=== PATIENT | male | born 1950 | race Caucasian/White ===

== ENCOUNTER 2018-01-05 12:49 | Inpatient (IN) | payer MEDICARE ==
[~2018-01-05] VITALS: Ht 177.8 cm; Wt 103.1 kg
[2018-01-05] MEDS ORDERED: SODIUM CHLORIDE 0.9% 500ML 500 ML IV ONE (13:45)
--- NOTE | 2018-01-05 14:38 | Diagnostic Imaging Report ---
EXAMINATION: PA and lateral views of the chest. COMPARISON: None CLINICAL HISTORY: Hypoxia DISCUSSION: Lung volumes are low. Right hemidiaphragmatic elevation. No gross consolidation or effusion. Cardiomegaly with postsurgical changes of the mediastinum and prominence of the pulmonary interstitium. Age indeterminate though likely chronic severe anterior compression deformity of a midthoracic vertebral body with near complete anterior loss of height. IMPRESSION: Low lung volumes with cardiomegaly and interstitial pulmonary edema. Age indeterminate though likely chronic severe anterior compression deformity of a midthoracic vertebral body. Correlate for point tenderness. Signed by: Dr. Toño Landaverde M.D. on 01/05/2018 2:35 PM
[2018-01-05 14:53] LABS: BASOPHILS % 0.5 % (0.0-1.0); EOSINOPHILS # (AUTO) 0.2 (0.0-0.4); EOSINOPHILS % 4.2 % (0.0-6.0); HEMATOCRIT 39.8 % (38.2-49.6); HEMOGLOBIN 12.5 g/dL (14.0-18.0); LYMPHOCYTES % 35.1 % (18.0-39.1); MEAN CORPUSCULAR HEMOGLOBIN 28.4 pg (28-32); MEAN CORPUSCULAR HGB CONC 31.4 g/dL (31-35); MEAN CORPUSCULAR VOLUME 90.5 fL (81-99); MONOCYTES # (AUTO) 0.6 (0.2-0.8); MONOCYTES % 9.9 % (4.4-11.3); NEUTROPHILS # (AUTO) 2.9 (2.1-6.9); NEUTROPHILS % 50.1 % (38.7-80.0); PLATELET COUNT 206 x10e3/uL (140-360); RED CELL DISTRIBUTION WIDTH 14.7 % (11.7-14.4)
[2018-01-05 15:23] LABS: ALANINE AMINOTRANSFERASE 18 IU/L (0-55); ALBUMIN 3.2 g/dL (3.5-5.0); ALBUMIN/GLOBULIN RATIO 1.1 (0.8-2.0); ALKALINE PHOSPHATASE 89 IU/L (40-150); BLOOD UREA NITROGEN 15 mg/dL (7-26); BUN/CREATININE RATIO 21 (6-25); CALCIUM 8.6 mg/dL (8.4-10.2); CREATININE, SERUM 0.71 mg/dL (0.72-1.25); EST GLOMERULAR FILTRATION RATE > 60 ML/MIN (60-); GLUCOSE 78 mg/dL (74-118)
[2018-01-05 15:24] LABS: THYROID STIMULATING HORMONE 3.074 uIU/mL (0.350-4.940)
[2018-01-05 15:49] LABS: ANION GAP 9.1 mmol/L (8-16); CHLORIDE 104 mmol/L (98-107); POTASSIUM 4.1 mmol/L (3.5-5.1); SODIUM 140 mmol/L (136-145)
--- NOTE | 2018-01-05 16:05 | Diagnostic Imaging Report ---
Exam: Head CT without contrast History: Fall, trauma Comparison studies: None Technique: Axial images were obtained from the skull base to the vertex. Coronal and sagittal images reconstructed from the axial data. Dose modulation, iterative reconstruction, and/or weight based adjustment of the mA/kV was utilized to reduce the radiation dose to as low as reasonably achievable. Radiation dose: Total DLP: ... mGy*cm. Estimated effective dose: DLP x 0.015 Intravenous contrast: None Findings: Scalp: No abnormalities. Bones: No fractures, blastic or lytic lesions. Brain sulci: Appropriate for age. Ventricles: The frontal horn and body of the right lateral ventricle are mildly dilated and there is mild displacement of the septum to the left of midline. Findings raise the possibility for small intraventricular arachnoid cyst. Extra-axial spaces: No masses, no fluid collection. Parenchyma: No abnormal densities. No masses, acute hemorrhage, acute or chronic vascular insults. Sellar/suprasellar region: No abnormalities. Craniocervical junction: Patent foramen magnum. No Chiari one malformation. Included paranasal sinuses: Surgical changes of previous endoscopic sinus surgery with right medial antrostomy, right uncinectomy, right medial turbinectomy, right ethmoidectomy and left sphenoidotomy. Chronic mucoperiosteal thickening in the right maxillary sinus which is partially opacified. Mild mucosal thickening along the left maxillary sinus alveolar recess. Right sphenoid sinus is completely opacified. The left sphenoid sinuses, ethmoids and remaining left maxillary sinus are clear. Incidental findings: Intraocular lens replacement. Atherosclerotic calcifications in the carotid siphons and in the left vertebral artery. Incidental calcifications along the straight sinus and internal cerebral veins. IMPRESSION: 1. No acute intracranial abnormalities. 2. 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 3. Changes of previous endoscopic sinus surgery with chronic inflammatory changes in the paranasal sinuses. Signed by: Dr. Toño Garay M.D. on 01/05/2018 4:01 PM
[2018-01-05] MEDS ORDERED: ALBUTEROL/IPRATROPIUM 3 ML NEB ONE (16:10)
[2018-01-05] MEDS ORDERED: ALBUTEROL/IPRATROPIUM 3 ML NEB NEB ONE (16:15)
[2018-01-05 16:18] LABS: BILIRUBIN,URINE NEGATIVE (NEGATIVE); CLARITY,URINE CLEAR (CLEAR); COLOR,URINE YELLOW (YELLOW); KETONES,URINE NEGATIVE (NEGATIVE); LEUKOCYTE ESTERASE ,URINE NEGATIVE (NEGATIVE); NITRITE,URINE NEGATIVE (NEGATIVE); PROTEIN,URINE DIPSTICK NEGATIVE (NEGATIVE); URINE UROBILINOGEN 1 mg/dL (0.2 - 1)
[2018-01-05 16:22] LABS: AMPHETAMINES SCREEN,URINE NEGATIVE (NEGATIVE); BENZODIAZEPINES SCREEN,URINE POSITIVE (NEGATIVE); PHENCYCLIDINE SCREEN,URINE NEGATIVE (NEGATIVE)
[2018-01-05] MEDS ORDERED: NALOXONE HCL INJ 0.4 MG/ML AMP IV ONE ×2 (16:45→18:30)
[2018-01-05] MEDS ORDERED: ASPIRIN 81 MG CHEW TAB PO ONE (16:45)
[2018-01-05] MEDS ORDERED: NALOXONE HCL INJ 0.4 MG/ML AMP IV PRN (16:45)
[2018-01-05] MEDS ORDERED: FUROSEMIDE INJ 10 MG/ML 4 ML VIAL IV ONE (16:45)
[2018-01-05] MEDS: FUROSEMIDE INJ 10 MG/ML 4 ML VIAL IV SCH (17:06)
[2018-01-05 17:30] LABS: CREATINE KINASE 61 IU/L (30-200)
[2018-01-05] MEDS: ENOXAPARIN SOD INJ 40 MG/0.4 ML SYR SC SCH (17:59)
[2018-01-05 18:01] LABS: CARBON DIOXIDE 31 mmol/L (22-29)
[2018-01-05 18:31] LABS: ABG HCO3 4 mmol/L (23-28); ABG PCO2 13 mmHg (41-51); ABG PH 7.09 (7.31-7.41); ABG PO2 66 mmHg (80-105)
[2018-01-05] MEDS ORDERED: PANTOPRAZOLE SO40 MG PO (18:34)
[2018-01-05] MEDS ORDERED: BUDESONIDE0.5 MG/2 M NEB (18:34)
[2018-01-05] MEDS ORDERED: ALENDRONATE SOD70 MG PO (18:34)
[2018-01-05] MEDS ORDERED: METOPROLOL TART25 MG PO (18:34)
[2018-01-05] MEDS ORDERED: TOLNAFTATE TOP (18:34)
[2018-01-05] MEDS ORDERED: BENZONATATE100 MG PO (18:34)
[2018-01-05] MEDS ORDERED: CLOPIDOGREL75 MG PO (18:34)
[2018-01-05] MEDS ORDERED: GABAPENTIN300 MG PO (18:34)
[2018-01-05] MEDS ORDERED: FUROSEMIDE40 MG PO (18:34)
[2018-01-05] MEDS ORDERED: FINASTERIDE5 MG PO (18:34)
[2018-01-05] MEDS ORDERED: MONTELUKAST SOD10 MG PO (18:34)
[2018-01-05] MEDS ORDERED: SPIRONOLACTONE25 MG PO (18:34)
[2018-01-05] MEDS ORDERED: PRAMIPEXOLE DIHY1 MG PO (18:34)
[2018-01-05] MEDS ORDERED: ATORVASTATIN CA20 MG PO (18:34)
[2018-01-05] MEDS ORDERED: CARVEDILOL3.125 MG PO (18:34)
[2018-01-05] MEDS ORDERED: IPRAT-ALBUT 0.5-3 ML IH (18:34)
[2018-01-05] MEDS ORDERED: RANITIDINE HCL150 MG PO (18:34)
[2018-01-05] MEDS ORDERED: LEVOTHYROXINE50 MCG PO (18:34)
[2018-01-05 19:04] LABS: ABG HCO3 33 mmol/L (23-28); ABG PCO2 61 mmHg (41-51); ABG PH 7.35 (7.31-7.41); ABG PO2 179 mmHg (80-105)
[2018-01-05] MEDS: ALBUTEROL/IPRATROPIUM 3 ML NEB NEB SCH (19:20)
[2018-01-06] VITALS (8 sets, daily range): BP systolic 99–124; BP diastolic 66–84
[2018-01-06 00:33] LABS: CREATINE KINASE 59 IU/L (30-200)
[2018-01-06] MEDS: ALBUTEROL/IPRATROPIUM 3 ML NEB NEB SCH ×3 (03:40→11:12)
[2018-01-06 05:59] LABS: ABG HCO3 35 mmol/L (23-28); ABG PCO2 60 mmHg (41-51); ABG PH 7.37 (7.31-7.41); ABG PO2 117 mmHg (80-105)
--- NOTE | 2018-01-06 06:27 | Diagnostic Imaging Report ---
EXAM: CHEST SINGLE (PORTABLE), AP 1 view INDICATION: Shortness of breath COMPARISON: PA and lateral view of the chest January 05, 2018 FINDINGS: LINES/TUBES: None LUNGS: No consolidations or edema. PLEURA: No effusions or pneumothorax. Stable elevation of the right hemidiaphragm. HEART AND MEDIASTINUM: Normal size and contour. BONES AND SOFT TISSUES: No acute findings. Stable median sternotomy wires. IMPRESSION: No interval change. Signed by: Dr. Lory Patel M.D. on 01/06/2018 6:24 AM
[2018-01-06 09:08] LABS: CREATINE KINASE 138 IU/L (30-200)
[2018-01-06] MEDS: FUROSEMIDE INJ 10 MG/ML 4 ML VIAL IV SCH (10:40)
[2018-01-06] MEDS ORDERED: ALBUTEROL/IPRATROPIUM 3 ML NEB NEB PRN (12:15)
[2018-01-06] MEDS: CARVEDILOL 3.125 MG TAB PO SCH (12:15)
[2018-01-06 13:22] LABS: AMPHETAMINES SCREEN,URINE NEGATIVE (NEGATIVE); BENZODIAZEPINES SCREEN,URINE NEGATIVE (NEGATIVE); PHENCYCLIDINE SCREEN,URINE NEGATIVE (NEGATIVE)
[2018-01-06] MEDS: GABAPENTIN 300 MG CAP PO SCH (16:17)
[2018-01-06] MEDS: ENOXAPARIN SOD INJ 40 MG/0.4 ML SYR SC SCH (16:17)
[2018-01-06] MEDS: TRAMADOL HCL 50 MG TAB PO PRN (16:20)
--- NOTE | 2018-01-06 16:25 | Consultation ---
DATE OF CONSULTATION: PULMONARY/CRITICAL CARE CONSULTATION REFERRING PHYSICIAN: Dr. George CHIEF COMPLAINT: Elevated CO2 and daytime somnolence. HISTORY OF PRESENT ILLNESS: The patient is a 67-year-old man. 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 He required radiation therapy and chemotherapy for this. As a result of the tumor and treatment, he lost vision in his right eye. After the treatment, he also had some ataxia and generally uses a walker to walk. Over the past several years, he has noticed problems with increasing sleepiness and lethargy during the day. He had a sleep study and was started on BiPAP S/T, which he uses regularly but does not note any difference in his daytime sleepiness. Several years ago, he went to the [facility] and was told that his daytime somnolence was related to an elevated carbon dioxide level. He underwent a tracheotomy, which did not help. His carbon dioxide remained elevated, and he remained somnolent during the day. The tracheostomy was subsequently removed. He came to the emergency department yesterday because of being more somnolent and forgetful. Apparently, his behaviors were unusual. He did not have any fevers. He does not have any cough or chest pain. PAST SURGICAL HISTORY 1. Status post coronary artery stenting with a drug-eluting stent times 2. 2. Status post maze operation for atrial fibrillation in the . 3. History of tracheostomy. MEDICAL HISTORY 1. History of B-cell lymphoma treated with radiation and chemo. 2. Atrial fibrillation. 3. Thyroid disease. 4. Obstructive sleep apnea. SOCIAL HISTORY: The patient has never been a smoker. He is not a drinker. He does not use any sedatives or benzodiazepines. He uses tramadol for pain but does not use any other narcotic-type medications. ALLERGIES: THE PATIENT HAS NO KNOWN DRUG ALLERGIES. REVIEW OF SYSTEMS: There is no history of fevers. He has no history of headache. He is blind in the right eye. He does not have any neck pain. He does have lower back pain. He denies any chest pain. He does have some dyspnea but could walk about a mile using his walker. He does complain of orthopnea. It is easier for him to breathe when sitting upright. He does not complain of any abdominal pain. There is no nausea or vomiting. He does not complain of any focal weakness in his extremities. PHYSICAL EXAMINATION VITALS: The patient is afebrile. Blood pressure is 124/84, and the pulse is 67. HEENT: Examination shows no facial swelling or erythema. The oropharynx is normal. LYMPHATIC: Examination shows no submandibular, cervical or supraclavicular adenopathy. CARDIAC: Exam reveals regular rate and rhythm with normal S1 and S2. LUNGS: Auscultation of the lungs reveals decreased breath sounds at the bases. ABDOMEN: Soft, nontender. There is no rebound or guarding. EXTREMITIES: Some muscle atrophy of all 4 extremities. He also has changes consistent with chronic arterial insufficiency in the lower extremities. LABORATORY DATA: The white blood cell count is 5.6 with hemoglobin of 12.5 and platelet count of 206. The LAR-yd-awnthzvawe ratio is 15:0.71. The other electrolytes are within normal limits. The albumin is 3.2. TSH is normal. The most recent blood gas is 7.37 with CO2 of 60 and O2 of 117. His bicarbonate is 35. His urinalysis is normal. His tox screen done at 1:05 today is completely negative. His alcohol level is also negative. IMPRESSION 1. Dvekc-qg-ymergvq hypercapnic respiratory failure. 2. Chronic respiratory acidosis with superimposed metabolic alkalosis. 3. History of coronary artery disease. 4. Atrial fibrillation. 5. Ataxia and difficulty walking. PLAN 1. Continue BiPAP for now. 2. The patient should have a vital capacity as well as pulmonary function testing. 3. CT scan of the chest. 4. Consider fluoroscopy of the diaphragm to rule out any element of diaphragmatic paralysis. 5. Consider neurological evaluation to evaluate for any neuromuscular disease given his orthopnea, ataxia and increased weakness. Job#: [id number]
--- NOTE | 2018-01-06 16:59 | Diagnostic Imaging Report ---
EXAM: CT Chest WITH contrast INDICATION: Low lung volumes and interstitial changes COMPARISON: Chest radiograph 01/05/2018 and 01/06/2018. TECHNIQUE: Chest was scanned utilizing a multidetector helical scanner from the lung apex through the level of the adrenal glands without administration of IV contrast. Coronal and sagittal reformations were obtained. Routine protocol was performed. IV CONTRAST: 100 mL of Isovue 370 RADIATION DOSE: Total DLP: 807.8 mGy*cm Estimated effective dose: (DLP x 0.014 x size factor) mSv COMPLICATIONS: None FINDINGS: LINES/ TUBES: None. LUNGS AND AIRWAYS: The central airways are patent. There are numerous bilateral punctate 2-3 mm calcified and noncalcified nodules, for example, a 2 mm calcified nodule in the left upper lobe on image 8, a 2 mm noncalcified nodule left upper lobe nodule on image 23, a 2 mm calcified nodule in the left lower lobe on image 32, and a 3 mm calcified nodule in the right lower lobe on image 28. There is partial atelectasis within the right lower lobe with associated volume loss in the right lung, the airways to this area appear patent. The right upper lobe is well aerated. PLEURA: The pleural spaces are clear. HEART AND MEDIASTINUM: The thyroid gland is normal. There are multiple calcified mediastinal, hilar, and peribronchial lymph nodes. There is left atrial enlargement measuring up to 5.2 cm. There are extensive coronary atherosclerotic changes and scattered atherosclerotic changes in the thoracic aorta and great vessels. Small hiatal hernia. The right hemidiaphragm is elevated. UPPER ABDOMEN: Limited views of the upper abdomen. The visualized liver appears unremarkable. Status post cholecystectomy. Subcentimeter left renal hypodensity is too small to characterize, but likely represents a cyst. There is a partially seen hypodensity within the right kidney. BONES AND SOFT TISSUES: There are severe likely chronic wedge compression deformities (with loss of greater than 75 percent of vertebral body height) of the T5 and T7 vertebral bodies without evidence of bony retropulsion. Status post median sternotomy. Degenerative changes visualized spine. IMPRESSION: Sequela of prior granulomatous disease including numerous bilateral calcified and non-calcified nodules and calcified thoracic lymph nodes. Volume loss in the right lower lobe, likely represents sequela of prior infection with atelectasis/scarring. Central airways appear patent. No CT evidence of interstitial lung disease as clinically queried. Severe likely chronic wedge compression deformities of the T5 and T7 vertebral bodies. Signed by: Dr. Carole Guerrero MD on 01/06/2018 4:55 PM
[2018-01-06] MEDS ORDERED: BUDESONIDE 0.5MG/2 ML NEB NEB SCH (17:00)
[2018-01-06] MEDS ORDERED: PNEUMOCOCCAL VACCINE POLYVALENT 23 MCG/0.5 ML VIAL IM NR (20:00)
[2018-01-06] MEDS ORDERED: INFLUENZA VIRUS VAC SPLIT INJ 0.5 ML SYR IM NR (20:00)
[2018-01-06] MEDS ORDERED: SODIUM CHLORIDE 0.9% 50ML 50 ML ONE (20:22)
[2018-01-06] MEDS ORDERED: IOPAMIDOL 370 MG/ML 200 ML INFUS..BTL INJ ONE (20:22)
[2018-01-06] MEDS ORDERED: ATORVASTATIN 20 MG TAB PO SCH (21:00)
[2018-01-07] VITALS (15 sets, daily range): BP systolic 82–118; BP diastolic 61–79
[2018-01-07] MEDS: CARVEDILOL 3.125 MG TAB PO SCH ×2 (00:15→12:36)
[2018-01-07 04:57] LABS: BASOPHILS % 0.5 % (0.0-1.0); EOSINOPHILS # (AUTO) 0.2 (0.0-0.4); EOSINOPHILS % 3.1 % (0.0-6.0); HEMATOCRIT 39.5 % (38.2-49.6); HEMOGLOBIN 12.6 g/dL (14.0-18.0); LYMPHOCYTES % 33.6 % (18.0-39.1); MEAN CORPUSCULAR HEMOGLOBIN 28.1 pg (28-32); MEAN CORPUSCULAR HGB CONC 31.9 g/dL (31-35); MONOCYTES # (AUTO) 0.7 (0.2-0.8); MONOCYTES % 11.1 % (4.4-11.3); NEUTROPHILS % 51.4 % (38.7-80.0); PLATELET COUNT 195 x10e3/uL (140-360); RED BLOOD COUNT 4.49 x10e6/uL (4.3-5.7); RED CELL DISTRIBUTION WIDTH 14.7 % (11.7-14.4)
[2018-01-07 05:16] LABS: ANION GAP 12.5 mmol/L (8-16); BLOOD UREA NITROGEN 17 mg/dL (7-26); BUN/CREATININE RATIO 20 (6-25); CALCIUM 9.1 mg/dL (8.4-10.2); CARBON DIOXIDE 32 mmol/L (22-29); CHLORIDE 94 mmol/L (98-107); CREATININE, SERUM 0.84 mg/dL (0.72-1.25); EST GLOMERULAR FILTRATION RATE > 60 ML/MIN (60-); GLUCOSE 84 mg/dL (74-118); MAGNESIUM 1.7 MG/DL (1.3-2.1); POTASSIUM 3.5 mmol/L (3.5-5.1); SODIUM 135 mmol/L (136-145)
[2018-01-07] MEDS: LEVOTHYROXINE SODIUM 50 MCG TAB PO SCH ×2 (06:06→09:30)
[2018-01-07] MEDS ORDERED: ATORVASTATIN 20 MG TAB PO SCH (09:00)
[2018-01-07] MEDS ORDERED: BALSAM PERU/CASTOR OIL 60 GM OINT...G. TP SCH (09:00)
[2018-01-07] MEDS ORDERED: NYSTATIN 15 GM POWDER UD BTL TOP SCH (09:00)
[2018-01-07] MEDS ORDERED: LEVOTHYROXINE SODIUM 50 MCG TAB PO SCH (09:00)
[2018-01-07] MEDS ORDERED: CLOPIDOGREL BISULFATE 75 MG TAB PO SCH (09:00)
[2018-01-07] MEDS: GABAPENTIN 300 MG CAP PO SCH (09:30)
[2018-01-07] MEDS: TRAMADOL HCL 50 MG TAB PO PRN (12:21)
--- NOTE | 2018-01-07 15:47 | Progress Note ---
DATE: SUBJECTIVE: Patient is more alert today. He is less somnolent. He states he has an ongoing respiratory problem and sees a cardiovascular specialist affiliated with [facility]. He uses a BiPAP S/T at home. He is aware of the elevated right hemidiaphragm and chronic volume loss in his right lung that was seen today on CT. He does not complain of any fevers or chest pain. He is not having any phlegm production. OBJECTIVE: VITAL SIGNS: The patient is afebrile. The blood pressure is 100/72, and the saturation is 98%. HEENT: Examination shows no facial swelling or erythema. The nasal mucosa is normal. The oropharynx is normal. LYMPHATIC: Examination shows no submandibular, cervical or supraclavicular adenopathy. CARDIOVASCULAR: Exam reveals a regular rate and rhythm with a normal S1 and S2. There are no murmurs or rubs. LUNGS: Auscultation shows decreased breath sounds, more on the right than the left. ABDOMEN: Soft and nontender. There is no rebound or guarding. EXTREMITIES: There is some muscle atrophy in the extremities. RADIOGRAPHIC DATA: CT scan shows a severe elevation of the right hemidiaphragm with chronic volume loss in the right lower lobe. There are also calcified lymph nodes and old granulomas suggestive of a prior infection. IMPRESSION: 1. 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 2. Bkmyl-sx-hxflxzv hypercapnic respiratory failure. 3. Prior B-cell lymphoma treated with radiation and chemotherapy. 4. Thyroid disease. 5. Obstructive sleep apnea. PLAN: 1. Patient should go home with his BiPAP S/T. 1. He may benefit from a portable noninvasive ventilator in the future. 2. He should follow up with his cardiovascular specialist as an outpatient. 3. He should also have neurological evaluation as an outpatient if this has not already been done. Job#: [id number] EV
--- NOTE | 2018-01-07 16:01 | Discharge Summary ---
PRIMARY CARE PHYSICIAN: Dr. Prabha Parks with [facility]. FINAL DIAGNOSES 1. Inskw-ff-hhrbami respiratory failure. 2. CO2 narcosis. 3. Coronary artery disease. 4. Atrial fibrillation. 5. Diastolic congestive heart failure. 6. Hypothyroidism with normal TSH. 7. History of large B-cell lymphoma. CONSULTANTS: Dr. Macdonald, store cashier. PROCEDURES: Chest CT with chronic volume loss of the right lower lobe. Head CT did not show any acute disease. Please refer to H\T\P. HOSPITAL COURSE: The patient was put on continuous BiPAP. His somnolence improved. Despite BiPAP his PCO2 was still 60, most likely indicating night time BiPAP at home is not sufficient. Potentially, we may need to look into portal daytime BiPAP. As far as his atrial fibrillation, the patient is not an anticoagulation candidate due to fall risk. I discussed this case with Dr. Macdonald. At this time, everything appears to be chronic. Will go ahead and discharge him home today with followup with his [facility] physicians. The patient was seen and examined today. It took 32 minutes total to discharge this patient. CONDITION ON DISCHARGE: Improved. DISCHARGE MEDICATIONS: Please see medication reconciliation form. ARIEL MARINELLI M.D. Job#: [id number] cc:PRABHA PARKS MD
--- OUTSIDE RECORDS SUMMARY | 2018-01-13 12:08 | XMS REPORT | Clinical Summary ---
Author Author [facility] Organization [facility] Address Unknown Phone Unavailable Care Team Providers Care Pipe Organ Tuner And Repairer Name Role Phone PCP Unavailable Allergies No Known Allergies Current Medications Prescription Sig. Disp. Refills Start End Date Status Date pramipexole (MIRAPEX) 1 1 mg by G-tube route Active MG tablet nightly. gabapentin (NEURONTIN) 600 mg by G-tube route 2 Active 600 MG tablet (two) times daily. finasteride (PROSCAR) 5 5 mg by G-tube route Active mg tablet daily. albuterol (ACCUNEB) 1.25 Take 1 ampule by Active mg/3 mL nebulizer nebulization every 4 solution (four) hours as needed for Wheezing. famotidine (PEPCID) 20 MG 20 mg by G-tube route Active tablet daily. zinc oxide 20 % ointment Apply topically as Active directed Apply to right buttocks topically every day shift for redness. . atorvastatin (LIPITOR) 20 20 mg by G-tube route Active MG tablet nightly. ferrous sulfate 300 mg Take by mouth as directed Active (60 mg iron)/5 mL syrup Give 5ml via G-tube at bedtime. . cholecalciferol, vitamin by G-tube route daily. Active D3, 2,000 unit Cap calcium carbonate-vitamin 1 tablet by G-tube route Active D3 (OSCAL-D) 500 2 (two) times daily with mg(1,250mg) -200 unit per breakfast and dinner. tablet lactulose (CHRONULAC) 10 15 mLs by G-tube route Active gram/15 mL (15 mL) daily. solution montelukast (SINGULAIR) 10 mg by G-tube route Active 10 mg tablet daily. levothyroxine (SYNTHROID, 100 mcg by G-tube route Active LEVOTHROID) 100 MCG Every morning on an empty tablet stomach. budesonide (PULMICORT) Take 0.5 mg by Active 0.5 mg/2 mL nebulizer nebulization 2 (two) solution times daily. FA/MV,CA,IRON,MIN/LYCOPEN 1 tablet by G-tube route Active E/LUT (MULTIVITAL ORAL) daily. traMADol (ULTRAM) 50 mg 50 mg by G-tube route Active tablet every 6 (six) hours as needed for Pain. ipratropium-albuterol Take 3 mLs by 100 mL 0 05/24/19 Active (DUO-NEB) 0.5 mg-3 mg(2.5 nebulization 4 (four) 17 mg base)/3 mL nebulizer times daily as needed for solution Wheezing Directions: 3ml via vent every 4 hours.. salmeterol (SEREVENT Inhale 1 puff by mouth 1 Inhaler 0 05/24/19 05/24/19 DISKUS) 50 mcg/dose via inhaler 2 (two) times 17 18 diskus inhaler daily. dutasteride (AVODART) 0.5 Take 1 capsule (0.5 mg 60 capsule 0 05/24/19 05/24/19 mg capsule total) by mouth daily. 17 18 clopidogrel (PLAVIX) 75 Take 1 tablet (75 mg 60 tablet 0 05/24/19 05/24/19 mg tablet total) by mouth daily. 17 18 carvedilol (COREG) 3.125 Take 1 tablet (3.125 mg 60 tablet 0 05/24/19 05/24/19 MG tablet total) by mouth 2 (two) 17 18 times daily. acetylcysteine 20% Take 2 mLs by 30 mL 0 05/24/19 05/24/19 (MUCOMYST) 200 mg/mL (20 nebulization 2 (two) 17 18 %) nebulizer solution times daily. acetaminophen (TYLENOL) Take 2 tablets (650 mg 30 tablet 0 05/24/19 05/19/19 325 MG tablet total) by mouth every 6 17 18 (six) hours as needed for up to 360 days. 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
--- OUTSIDE RECORDS SUMMARY | 2018-01-13 12:08 | XMS REPORT | Clinical Summary ---
Author Author [facility] Organization [facility] Address Unknown Phone Unavailable Care Team Providers Care Customer Service Trainer Name Role Phone Asked, No Pcp PCP Unavailable Allergies No Known Allergies Current Medications Prescription Sig. Disp. Refills Start End Date Status Date cephalexin (KEFLEX) 500 Take 1 capsule (500 mg 20 capsule 0 05/05/19 05/15/19 MG capsule total) by mouth 2 (two) 18 18 times a day for 10 days. Active Problems Not on file Encounters Date Type Specialty Care Team Description 05/05/2017 Emergency Emergency Medicine [facility] Laceration of right thumb MD Chris without foreign body without damage to nail, initial encounter (Primary Dx); Skin infection after 01/04/2017 Immunizations Name Dates Previously Given Next Due Tdap 05/05/2017 Social History Tobacco Use Types Packs/Day Years Used Date Never Smoker Alcohol Use Drinks/Week oz/Week Comments Yes occasional Sex Assigned at Date Recorded Not on file Last Filed Vital Signs Vital Sign Reading Time Taken Blood Pressure 126/75 05/05/2017 6:53 PM RESIDENTIAL PROGRAM WORKER Pulse 70 05/05/2017 6:53 PM RESIDENTIAL PROGRAM WORKER Temperature 36.7 C (98 F) 05/05/2017 5:00 PM RESIDENTIAL PROGRAM WORKER Respiratory Rate 18 05/05/2017 6:53 PM RESIDENTIAL PROGRAM WORKER Oxygen Saturation 94% 05/05/2017 6:53 PM RESIDENTIAL PROGRAM WORKER Inhaled Oxygen - - Concentration Weight 104 kg (230 lb) 05/05/2017 5:02 PM RESIDENTIAL PROGRAM WORKER Height 177.8 cm (5' 10") 05/05/2017 5:02 PM RESIDENTIAL PROGRAM WORKER Body Mass Index 33 05/05/2017 5:02 PM RESIDENTIAL PROGRAM WORKER Plan of Treatment Not on file Results Not on fileafter 01/04/2017 Insurance Payer Benefit Subscriber ID Type Phone Address Plan / Group [facility] ADVANTAGE [facility] xxxxxxxxxxx O ADVANTAGE [facility]
--- OUTSIDE RECORDS SUMMARY | 2018-01-13 12:08 | XMS REPORT ---
[facility] Address Unknown Phone Unavailable Care Team Providers Care Boom Operator Name Role Phone Jayro MARINELLI Unavailable Unavailable MARÍA KIRK Unavailable Unavailable Payers Payer Name Policy Type Policy Number Effective Date Expiration Date Problems This patient has no known problems. Allergies, Adverse Reactions, Alerts Allergy Name Allergy Type Status Severity Reaction(s) Onset Date Inactive Date Treating Clinician Comments No Known Allergies DA Active U 2016-12-08 00:00:00 Medications This patient has no known medications. Results Test Description Test Time Test Comments Text Results Atomic Results Result Comments CT CHEST W 2018-01-06 16:28:00 [place] [address] Patient Name: SALVADOR LAZAR MR #: [id number] : 1950 Age/Sex: 67/M Req #: [id number] [facility] Physician: ARIEL MARINELLI MD Ordered by: MARCUS SUMMERS MD Report #: [id number] Location: [facility] Room/Bed: [place] [address] Procedure: [id number] CT/CT CHEST W Exam Date: 01/06/18 Exam Time: 1600 REPORT STATUS: Signed EXAM: CT Chest WITH contrast INDICATION: Low lung volumes and interstitial changes COMPARISON: Chest radiograph 01/05/2018 and 01/06/2018. TECHNIQUE: Chest was scanned utilizing a multidetector helical scanner from the lung apex through the level of the adrenal glands without administration of IV contrast. Coronal and sagittal reformations were obtained. Routine protocol was performed. IV CONTRAST: 100 mL of Isovue 370 RADIATION DOSE: Total DLP: 807.8 mGy*cm Estimated effective dose: (DLP x 0.014 x size factor) mSv COMPLICATIONS: None FINDINGS: LINES/ TUBES: None. LUNGS AND AIRWAYS: The central airways are patent. There are numerous bilateral punctate 2-3 mm calcified and noncalcified nodules, for example, a 2 mm calcified nodule in t he left upper lobe on image 8, a 2 mm noncalcified nodule left upper lobe nodule on image 23, a 2 mm calcified nodule in the left lower lobe on image 32, and a 3 mm calcified nodule in the right lower lobe on image 28. There is partial atelectasis within the right lower lobe with associated volume loss in the right lung, the airways to this area appear patent. The right upper lobe is well aerated. PLEURA: The pleural spaces are clear. HEART AND MEDIASTINUM: The thyroid gland is normal. There are multiple calcified mediastinal, hilar, and peribronchial lymph nodes. There is left atrial enlargement measuring up to 5.2 cm. There are extensive coronary atherosclerotic changes and scattered atherosclerotic changes in the thoracic aorta and great vessels. Small hiatal hernia. The right hemidiaphragm is elevated. UPPER ABDOMEN: Limited views of the upper abdomen. The visualized liver appears unremarkable. Status post cholecystectomy. Subcentimeter left renal hypodensity is too small to characterize, but likely represents a cyst. There is a partially seen hypodensity within the right kidney. BONES AND SOFT TISSUES: There are severe likely chronic wedge compression deformities (with loss of greater than 75 percent of vertebral body height) of the T5 and T7 vertebral bodies without evidence of bony retropulsion. Status post median sternotomy. Degenerative changes visualized spine. IMPRESSION: Sequela of prior granulomatous disease including numerous bilateral calcified and non-calcified nodules and calcified thoracic lymph nodes. Volume loss in the right lower lobe, likely represents sequela of prior infection with atelectasis/scarring. Central airways appear patent. No CT evidence of interstitial lung disease as clinically queried. Severe likely chronic wedge compression deformities of the T5 and T7 vertebral bodies. Signed by: Dr. Zohreh Amanda MD on 01/06/2018 4:55 PM Dictated By: ZOHREH AMANDA MD 54 Transcribed By: REAL on 01/06/181654 COPY TO: MARCUS SUMMERS MD CHEST SINGLE (PORTABLE) 2018-01-06 06:23:00 [place] [address] Patient Name: SALVADOR LAZAR MR #: [id number] : 1950 Age/Sex: 67/M Req #: [id number] Adm Physician: ARIEL MARINELLI MD Ordered by: RODY CHAVEZ MD Report #: [id number] Location: [facility] Room/Bed: [place] [address] Procedure: [id number] DX/CHEST SINGLE (PORTABLE) Exam Date: 01/06/18 Exam Time: 0510 REPORT STATUS: Signed EXAM: CHEST SINGLE (PORTABLE), AP 1 view INDICATION: Shortness of breath COMPARISON: PA and lateral view of the chest January 05, 2018 FINDINGS: LINES/TUBES: None LUNGS: No consolidations or edema. PLEURA: No effusions or pneumothorax. Stable elevation of the right hemidiaphragm. HEART AND MEDIASTINUM: Normal size and contour. BONES AND SOFT TISSUES: No acute findings. Stable median sternotomy wires. IMPRESSION: No interval change. Signed by: Dr. Gilda Patel M.D. on 01/06/2018 6:24 AM Dictated By: GILDA PATEL MD 3 Transcribed By: REAL on 01/06/18623 COPY TO: RODY CHAVEZ MD CT BRAIN WO 2018-01-05 15:51:00 [place] [address] Patient Name: SALVADOR LAZAR MR #: [id number] : 1950 Age/Sex: 67/M Req #: [id number] Adm Physician: Ordered by: RODY CHAVEZ MD Report #: [id number] Location: ER Room/Bed: Procedure: [id number] CT/CT BRAIN WO Exam Date: 01/05/18 Exam Time: 1515 REPORT STATUS: Signed Exam: Head CT without contrast History: Fall, trauma Comparison studies: None Technique: Axial images were obtained from the skull base to the vertex. Coronal and sagittal images reconstructed from the axial data. Dose modulation, iterative reconstruction, and/or weight based adjustment of the mA/kV was utilized to reduce the radiation dose to as low as reasonably achievable. Radiation dose: Total DLP: ... mGy*cm. Estimated effective dose: DLP x 0.015 Intravenous contrast: None Findings: Scalp: No abnormalities. Bones: No fractures, blastic or lytic lesions. Brain sulci: Appropriate for age. Ventricles: The frontal horn and body of the right lateral ventricle are mildly dilated and there is mild displacement of the septum to the left of midline. Findings raise the possibility for small intraventricular arachnoid cyst. Extra-axial spaces: No masses, no fluid collection. Parenchyma: No abnormal densities. No masses, acute hemorrhage, acute or chronic vascular insults. Sellar/suprasellar region: No abnormalities. Craniocervical junction: Patent foramen magnum. No Chiari one malformation. Included paranasal sinuses: Surgical changes of previous endoscopic sinus surgery with right medial antrostomy, right uncinectomy, right medial turbinectomy, right ethmoidectomy and left sphenoidotomy. Chronic mucoperiosteal thickening in the right maxillary sinus which is partially opacified. Mild mucosal thickening along the left maxillary sinus alveolar recess. Right sphenoid sinus is completely opacified. The left sphenoid sinuses, ethmoids and remaining left maxillary sinus are clear. Incidental findings: Intraocular lens replacement. Atherosclerotic calcifications in the carotid siphons and in the left vertebral artery. Incid ental calcifications along the straight sinus and internal cerebral veins. IMPRESSION: 1. No acute intracranial abnormalities. 2. 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 3. Changes of previous endoscopic sinus surgery with chronic inflammatory changes in the paranasal sinuses. Signed by: Dr. Anh Garay M.D. on 01/05/2018 4:01 PM Dictated By: ANH GARAY MD 1601 Transcribed By: REAL on 01/05/18 1601 COPY TO: RODY CHAVEZ MD CHEST 2 VIEWS 2018-01-05 14:33:00 [place] [address] Patient Name: SALVADOR LAZAR MR #: [id number] : 1950 Age/Sex: 67/M Req #: [id number] Adm Physician: Ordered by: RODY CHAVEZ MD Report #: [id number] Location: ER Room/Bed: Procedure: [id number] DX/CHEST 2 VIEWS Exam Date: 01/05/18 Exam Time: 1413 REPORT STATUS: Signed EXAMINATION: PA and lateral views of the chest. COMPARISON: None CLINICAL HISTORY: Hypoxia DISCUSSION: Lung volumes are low. Right hemidiaphragmatic elevation. No gross consolidation or effusion. Cardiomegaly with postsurgical changes of the mediastinum and prominence of the pulmonary interstitium. Age indeterminate though likely chronic severe anterior compression deformity of a midthoracic vertebral body with near complete anterior loss of height. IMPRESSION: Low lung volumes with cardiomegaly and interstitial pulmonary edema. Age indeterminate though likely chronic severe anterior compression deformity of a midthoracic vertebral body. Correlate for point tenderness. Signed by: Dr. Anh Gallardo M.D. on 01/05/2018 2:35 PM Dictated By: ANH GALLARDO MD 1435 Transcribed By: REAL on 01/05/18 1435 COPY TO: RODY CHAVEZ MD POCT-GLUCOSE METER 2016-05-24 12:01:00 POC-GLUCOSE METER (Jobber) (test ueux=0575) 95 mg/dL 70-110 TESTED AT [address] [address] SPUTUM CULTURE + GRAM [id number] 10:30:00* Test Item Value Reference Range Comments CULTURE (BEAKER) (test qotq=8945) KLEBSIELLA PNEUMONIAE 4+ Klebsiella pneumoniae Amikacin (test code=1) Ampicillin + Sulbactam (test code=6) Aztreonam (test code=32) Cefepime (test code=51) Cefoxitin (test code=68) Ceftazidime (test code=27) Ceftriaxone (test code=52) Ertapenem (test code=38) Gentamicin (test code=18) Levofloxacin (test code=22) Meropenem (test code=34) Piperacillin + Tazobactam (test code=29) Tetracycline (test code=2) Tobramycin (test code=25) Trimethoprim + Sulfamethoxazole (test code=47) CULTURE (BEAKER) (test jhfc=55086) STENOTROPHOMONAS MALTOPHILIA 4+ Stenotrophomonas maltophilia Ceftazidime (test code=27) Susceptible 0-8 , Resistant <0 or >8 Levofloxacin (test code=22) Susceptible 0-2 , Resistant <0 or >2 Minocycline (test code=35) Susceptible 0-4 , Resistant <0 or >4 Trimethoprim + Sulfamethoxazole (test code=47) Susceptible 0-40 , Resistant <0 or >40 GRAM STAIN RESULT (BEAKER) (test qcmd=3774) 4+ WBCs GRAM STAIN RESULT (BEAKER) (test qxjt=767678) 0-5 epithelial cells GRAM STAIN RESULT (BEAKER) (test vrpe=431347) <1+ gram negative rods GRAM STAIN RESULT (BEAKER) (test ulqm=611922) 2+ gram positive rods 4+ Normal respiratory avril presentPOCT-GLUCOSE [id number] 06:21:00* Test Item Value Reference Range Comments POC-GLUCOSE METER (BEAKER) (test vxqc=6512) 93 mg/dL 70-110 TESTED AT [address] [address] POCT-GLUCOSE [id number] 00:27:00* Test Item Value Reference Range Comments POC-GLUCOSE METER (BEAKER) (test ozpc=3388) 97 mg/dL 70-110 TESTED AT [address] [address] POCT-GLUCOSE [id number] 18:50:00* Test Item Value Reference Range Comments POC-GLUCOSE METER (BEAKER) (test twzw=2230) 66 mg/dL 70-110 Notified HUGO CRUM/TESTED AT [address] [address] POCT-GLUCOSE [id number] 18:13:00* Test Item Value Reference Range Comments POC-GLUCOSE METER (BEAKER) (test bpkn=0247) 67 mg/dL 70-110 TESTED AT [address] [address] POCT-GLUCOSE [id number] 12:12:00* Test Item Value Reference Range Comments POC-GLUCOSE METER (BEAKER) (test iubp=1107) 75 mg/dL 70-110 TESTED AT [address] [address] POCT-GLUCOSE [id number] 06:34:00* Test Item Value Reference Range Comments POC-GLUCOSE METER (BEAKER) (test jjdl=0304) 92 mg/dL 70-110 TESTED AT [address] [address] BASIC METABOLIC [id number] 06:10:00* Test Item Value Reference Range Comments SODIUM (BEAKER) (test dkjo=652) 135 meq/L 136-145 POTASSIUM (BEAKER) (test jjpv=145) 4.0 meq/L 3.5-5.1 CHLORIDE (BEAKER) (test jhua=394) 105 meq/L 98-107 CO2 (BEAKER) (test sphk=972) 22 meq/L 22-29 BLOOD UREA NITROGEN (BEAKER) (test pedi=741) 15 mg/dL 7-21 CREATININE (BEAKER) (test eokz=886) 0.52 mg/dL 0.57-1.25 GLUCOSE RANDOM (BEAKER) (test kpwr=208) 93 mg/dL 70-105 CALCIUM (BEAKER) (test vydp=567) 8.7 mg/dL 8.4-10.2 EGFR (BEAKER) (test icwd=5581) 158 mL/min/1.73 sq m ESTIMATED GFR IS NOT ACCURATE CREATININE CLEARANCE IN PREDICTING GLOMERULAR FILTRATION RATE. ESTIMATED GFR IS NOT APPLICABLE FOR DIALYSIS PATIENTS. CBC W/PLT COUNT & AUTO [id number] 04:38:00* Test Item Value Reference Range Comments WHITE BLOOD CELL COUNT (BEAKER) (test wrxh=946) 5.9 K/ L 4.0-10.0 RED BLOOD CELL COUNT (BEAKER) (test ldoo=725) 3.87 M/ L 4.20-5.80 HEMOGLOBIN (BEAKER) (test jmrq=424) 11.7 GM/DL 13.0-16.8 HEMATOCRIT (BEAKER) (test lcpo=592) 37.1 % 40.0-50.0 MEAN CORPUSCULAR VOLUME (BEAKER) (test qzmc=738) 95.9 fL 82.0-98.0 MEAN CORPUSCULAR HEMOGLOBIN (BEAKER) (test balo=047) 30.4 pg 27.0-33.0 MEAN CORPUSCULAR HEMOGLOBIN CONC (BEAKER) (test qepm=522) 31.7 GM/DL 32.0-36.0 RED CELL DISTRIBUTION WIDTH (BEAKER) (test yrcb=425) 15.5 % 10.3-14.2 PLATELET COUNT (BEAKER) (test fyoq=241) 248 K/CU MM 150-430 MEAN PLATELET VOLUME (BEAKER) (test tjut=761) 7.3 fL 6.5-10.5 NUCLEATED RED BLOOD CELLS (BEAKER) (test lbli=351) 0 /100 WBC 0-0 NEUTROPHILS RELATIVE PERCENT (BEAKER) (test fjbj=475) 55 % LYMPHOCYTES RELATIVE PERCENT (BEAKER) (test ydxg=796) 30 % MONOCYTES RELATIVE PERCENT (BEAKER) (test lapn=452) 11 % EOSINOPHILS RELATIVE PERCENT (BEAKER) (test spac=756) 4 % BASOPHILS RELATIVE PERCENT (BEAKER) (test bbmo=859) 1 % NEUTROPHILS ABSOLUTE COUNT (BEAKER) (test jmsu=786) 3.25 K/ L 1.80-8.00 LYMPHOCYTES ABSOLUTE COUNT (BEAKER) (test kptq=998) 1.74 K/ L 1.48-4.50 MONOCYTES ABSOLUTE COUNT (BEAKER) (test lzgq=426) 0.62 K/ L 0.00-1.30 EOSINOPHILS ABSOLUTE COUNT (BEAKER) (test bwlw=208) 0.23 K/ L 0.00-0.50 BASOPHILS ABSOLUTE COUNT (BEAKER) (test xruk=322) 0.04 K/ L 0.00-0.20 0.00POCT-GLUCOSE [id number] 00:02:00* Test Item Value Reference Range Comments POC-GLUCOSE METER (BEAKER) (test njcb=7738) 86 mg/dL 70-110 TESTED AT [address] [address] POCT-GLUCOSE [id number] 17:42:00* Test Item Value Reference Range Comments POC-GLUCOSE METER (BEAKER) (test jyxc=2924) 95 mg/dL 70-110 TESTED AT [address] [address] POCT-GLUCOSE [id number] 12:10:00* Test Item Value Reference Range Comments POC-GLUCOSE METER (BEAKER) (test jmvg=0138) 88 mg/dL 70-110 TESTED AT [address] [address] POCT-GLUCOSE [id number] 05:41:00* Test Item Value Reference Range Comments POC-GLUCOSE METER (BEAKER) (test qbct=0302) 97 mg/dL 70-110 TESTED AT [address] [address] POCT-GLUCOSE [id number] 00:22:00* Test Item Value Reference Range Comments POC-GLUCOSE METER (BEAKER) (test oihu=9014) 94 mg/dL 70-110 TESTED AT [address] [address] POCT-GLUCOSE [id number] 18:09:00* Test Item Value Reference Range Comments POC-GLUCOSE METER (BEAKER) (test zxfc=6722) 72 mg/dL 70-110 TESTED AT [place] [id number] [facility] [address] POCT-GLUCOSE [id number] 12:20:00* Test Item Value Reference Range Comments POC-GLUCOSE METER (BEAKER) (test zban=9672) 76 mg/dL 70-110 TESTED AT [address] [address] CLOSTRIDIUM DIFFICILE TOXIN [id number] 09:57:00* Test Item Value Reference Range Comments CLOSTRIDIUM DIFFICILE TOXIN, PCR (BEAKER) (test lfns=8218) Not Detected Not Detected This qualitative real-time polymerase chain reaction assay detects the tcdB gene , encoded on the C.difficile pathogenicity locus (PaLoc). The product of tcdB, toxin B, is a cytotoxin essential for causing C.difficile-associated disease (CD AD) and is found in virtually all toxigenic C.difficile.This assay is performed for patients suspected of having either community-acquired or nosocomial CDAD. Accordingly, only symptomatic patients should be tested and formed stools will b e rejected unless ileus is present (i.e., specified when ordering). Patients ma y be colonized with toxigenic C.difficile strains not causing active disease; th erefore, clinical correlation is needed when deciding how to manage patients wit h a positive test result.The assay has not been validated as a test of cure as a mplifiable nucleic acid may persist after effective treatment; therefore, follow -up testing of a positive result is not recommended.POCT-GLUCOSE [id number] 05:48:00* Test Item Value Reference Range Comments POC-GLUCOSE METER (BEAKER) (test wnry=9048) 102 mg/dL 70-110 TESTED AT [address] [address] POCT-GLUCOSE [id number] 23:40:00* Test Item Value Reference Range Comments POC-GLUCOSE METER (BEAKER) (test eock=0953) 92 mg/dL 70-110 TESTED AT [address] [address] POCT-GLUCOSE [id number] 17:33:00* Test Item Value Reference Range Comments POC-GLUCOSE METER (BEAKER) (test kdqh=5960) 100 mg/dL 70-110 TESTED AT [facility] [address] [facility] [address] POCT-GLUCOSE [id number] 12:03:00* Test Item Value Reference Range Comments POC-GLUCOSE METER (BEAKER) (test nyql=2191) 92 mg/dL 70-110 TESTED AT [address] [address] POCT-GLUCOSE [id number] 06:15:00* Test Item Value Reference Range Comments POC-GLUCOSE METER (BEAKER) (test gtgr=1469) 83 mg/dL 70-110 TESTED AT [address] [address] [id number] 06:05:00* Test Item Value Reference Range Comments PHOSPHORUS (BEAKER) (test erpc=927) 2.9 mg/dL 2.3-4.7 POCT-GLUCOSE [id number] 23:07:00* Test Item Value Reference Range Comments POC-GLUCOSE METER (BEAKER) (test dawm=7044) 91 mg/dL 70-110 TESTED AT [address] [address] BLOOD [id number] 10:00:00* Test Item Value Reference Range Comments CULTURE (BEAKER) (test lrbm=8818) No growth in 5 days BLOOD [id number] 10:00:00* Test Item Value Reference Range Comments CULTURE (BEAKER) (test xfja=3899) No growth in 5 days BASIC METABOLIC [id number] 06:22:00* Test Item Value Reference Range Comments SODIUM (BEAKER) (test ixbx=646) 138 meq/L 136-145 POTASSIUM (BEAKER) (test obbd=192) 3.9 meq/L 3.5-5.1 CHLORIDE (BEAKER) (test pdvh=227) 106 meq/L 98-107 CO2 (BEAKER) (test cohp=242) 27 meq/L 22-29 BLOOD UREA NITROGEN (BEAKER) (test thzz=631) 17 mg/dL 7-21 CREATININE (BEAKER) (test daei=903) 0.54 mg/dL 0.57-1.25 GLUCOSE RANDOM (BEAKER) (test ufvm=296) 98 mg/dL 70-105 CALCIUM (BEAKER) (test gsoq=024) 7.4 mg/dL 8.4-10.2 EGFR (BEAKER) (test xfeq=7592) 151 mL/min/1.73 sq m ESTIMATED GFR IS NOT ACCURATE CREATININE CLEARANCE IN PREDICTING GLOMERULAR FILTRATION RATE. ESTIMATED GFR IS NOT APPLICABLE FOR DIALYSIS PATIENTS. [id number] 06:21:00* Test Item Value Reference Range Comments PHOSPHORUS (BEAKER) (test rggv=876) 2.6 mg/dL 2.3-4.7 CBC W/PLT COUNT & AUTO [id number] 06:04:00* Test Item Value Reference Range Comments WHITE BLOOD CELL COUNT (BEAKER) (test azit=222) 7.5 K/ L 4.0-10.0 RED BLOOD CELL COUNT (BEAKER) (test snym=669) 3.58 M/ L 4.20-5.80 HEMOGLOBIN (BEAKER) (test mjrw=674) 10.6 GM/DL 13.0-16.8 HEMATOCRIT (BEAKER) (test yyrt=146) 34.4 % 40.0-50.0 MEAN CORPUSCULAR VOLUME (BEAKER) (test tdcw=636) 96.1 fL 82.0-98.0 MEAN CORPUSCULAR HEMOGLOBIN (BEAKER) (test yguj=496) 29.7 pg 27.0-33.0 MEAN CORPUSCULAR HEMOGLOBIN CONC (BEAKER) (test qmza=897) 30.9 GM/DL 32.0-36.0 RED CELL DISTRIBUTION WIDTH (BEAKER) (test scze=461) 15.4 % 10.3-14.2 PLATELET COUNT (BEAKER) (test rowq=160) 219 K/CU MM 150-430 MEAN PLATELET VOLUME (BEAKER) (test ouqt=322) 7.3 fL 6.5-10.5 NUCLEATED RED BLOOD CELLS (BEAKER) (test mzuz=246) 0 /100 WBC 0-0 NEUTROPHILS RELATIVE PERCENT (BEAKER) (test vist=382) 60 % LYMPHOCYTES RELATIVE PERCENT (BEAKER) (test ksph=389) 28 % MONOCYTES RELATIVE PERCENT (BEAKER) (test ivba=753) 10 % EOSINOPHILS RELATIVE PERCENT (BEAKER) (test alcl=329) 3 % BASOPHILS RELATIVE PERCENT (BEAKER) (test vuum=755) 0 % NEUTROPHILS ABSOLUTE COUNT (BEAKER) (test wobb=866) 4.49 K/ L 1.80-8.00 LYMPHOCYTES ABSOLUTE COUNT (BEAKER) (test mcuv=606) 2.07 K/ L 1.48-4.50 MONOCYTES ABSOLUTE COUNT (BEAKER) (test wcqr=506) 0.73 K/ L 0.00-1.30 EOSINOPHILS ABSOLUTE COUNT (BEAKER) (test chac=831) 0.21 K/ L 0.00-0.50 BASOPHILS ABSOLUTE COUNT (BEAKER) (test gfnp=426) 0.02 K/ L 0.00-0.20 0.00POCT-GLUCOSE [id number] 21:21:00* Test Item Value Reference Range Comments POC-GLUCOSE METER (BEAKER) (test gigc=5081) 85 mg/dL 70-110 TESTED AT [address] [address] POCT-GLUCOSE [id number] 18:53:00* Test Item Value Reference Range Comments POC-GLUCOSE METER (BEAKER) (test lpee=0077) 97 mg/dL 70-110 TESTED AT [address] [address] POCT-GLUCOSE [id number] 12:26:00* Test Item Value Reference Range Comments POC-GLUCOSE METER (BEAKER) (test ppzn=3284) 100 mg/dL 70-110 TESTED AT [address] [address] CBC W/PLT COUNT & AUTO [id number] 06:30:00* Test Item Value Reference Range Comments WHITE BLOOD CELL COUNT (BEAKER) (test olrg=652) 7.7 K/ L 4.0-10.0 RED BLOOD CELL COUNT (BEAKER) (test xkqd=573) 3.43 M/ L 4.20-5.80 HEMOGLOBIN (BEAKER) (test rrmu=739) 10.8 GM/DL 13.0-16.8 HEMATOCRIT (BEAKER) (test qiqf=658) 32.8 % 40.0-50.0 MEAN CORPUSCULAR VOLUME (BEAKER) (test nbfv=266) 95.5 fL 82.0-98.0 MEAN CORPUSCULAR HEMOGLOBIN (BEAKER) (test penl=383) 31.6 pg 27.0-33.0 MEAN CORPUSCULAR HEMOGLOBIN CONC (BEAKER) (test yohu=358) 33.1 GM/DL 32.0-36.0 RED CELL DISTRIBUTION WIDTH (BEAKER) (test ydoi=346) 15.3 % 10.3-14.2 PLATELET COUNT (BEAKER) (test srsd=690) 225 K/CU MM 150-430 MEAN PLATELET VOLUME (BEAKER) (test tppy=760) 7.8 fL 6.5-10.5 NUCLEATED RED BLOOD CELLS (BEAKER) (test sxay=060) 0 /100 WBC 0-0 NEUTROPHILS RELATIVE PERCENT (BEAKER) (test vafp=401) 59 % LYMPHOCYTES RELATIVE PERCENT (BEAKER) (test nunj=057) 29 % MONOCYTES RELATIVE PERCENT (BEAKER) (test wbru=391) 12 % EOSINOPHILS RELATIVE PERCENT (BEAKER) (test xrxj=183) 0 % BASOPHILS RELATIVE PERCENT (BEAKER) (test qdax=100) 0 % NEUTROPHILS ABSOLUTE COUNT (BEAKER) (test tzzn=188) 4.53 K/ L 1.80-8.00 LYMPHOCYTES ABSOLUTE COUNT (BEAKER) (test gwlt=910) 2.21 K/ L 1.48-4.50 MONOCYTES ABSOLUTE COUNT (BEAKER) (test scyj=453) 0.88 K/ L 0.00-1.30 EOSINOPHILS ABSOLUTE COUNT (BEAKER) (test gqcm=669) 0.03 K/ L 0.00-0.50 BASOPHILS ABSOLUTE COUNT (BEAKER) (test ucnf=338) 0.03 K/ L 0.00-0.20 0.00POCT-GLUCOSE [id number] 06:08:00* Test Item Value Reference Range Comments POC-GLUCOSE METER (BEAKER) (test brrw=8525) 112 mg/dL 70-110 TESTED AT [facility] [address] [facility] [address] [id number] 06:08:00* Test Item Value Reference Range Comments PHOSPHORUS (BEAKER) (test amgj=495) 2.0 mg/dL 2.3-4.7 Specimen slightly hemolyzed BASIC METABOLIC [id number] 06:08:00* Test Item Value Reference Range Comments SODIUM (BEAKER) (test etco=549) 135 meq/L 136-145 POTASSIUM (BEAKER) (test cwof=332) 3.9 meq/L 3.5-5.1 Specimen slightly hemolyzed CHLORIDE (BEAKER) (test sowq=958) 104 meq/L 98-107 CO2 (BEAKER) (test eujq=445) 25 meq/L 22-29 BLOOD UREA NITROGEN (BEAKER) (test mxbr=914) 18 mg/dL 7-21 CREATININE (BEAKER) (test nrcm=036) 0.56 mg/dL 0.57-1.25 Specimen slightly hemolyzed GLUCOSE RANDOM (BEAKER) (test zfuk=453) 114 mg/dL 70-105 CALCIUM (BEAKER) (test oqqg=598) 7.1 mg/dL 8.4-10.2 EGFR (BEAKER) (test thub=9551) 145 mL/min/1.73 sq m ESTIMATED GFR IS NOT ACCURATE CREATININE CLEARANCE IN PREDICTING GLOMERULAR FILTRATION RATE. ESTIMATED GFR IS NOT APPLICABLE FOR DIALYSIS PATIENTS. POCT-GLUCOSE [id number] 00:23:00* Test Item Value Reference Range Comments POC-GLUCOSE METER (BEAKER) (test cyid=7416) 105 mg/dL 70-110 TESTED AT [address] [address] POCT-GLUCOSE [id number] 17:35:00* Test Item Value Reference Range Comments POC-GLUCOSE METER (BEAKER) (test ilyq=5341) 98 mg/dL 70-110 TESTED AT [address] [address] POCT-GLUCOSE [id number] 12:17:00* Test Item Value Reference Range Comments POC-GLUCOSE METER (BEAKER) (test vzcf=8179) 103 mg/dL 70-110 TESTED AT [address] [address] POCT-GLUCOSE [id number] 06:36:00* Test Item Value Reference Range Comments POC-GLUCOSE METER (BEAKER) (test jvuu=4452) 138 mg/dL 70-110 TESTED AT [address] [address] [id number] 03:28:00* Test Item Value Reference Range Comments PHOSPHORUS (BEAKER) (test qsxm=186) 1.5 mg/dL 2.3-4.7 [id number] 03:25:00* Test Item Value Reference Range Comments PROTIME (BEAKER) (test uwdf=508) 15.5 seconds 11.7-14.7 INR (BEAKER) (test zwtn=290) 1.2 <=5.9 PARTIAL THROMBOPLASTIN TIME (BEAKER) (test eifp=248) 34.5 seconds 22.5-36.0 RECOMMENDED COUMADIN/WARFARIN INR THERAPY RANGESSTANDARD DOSE: 2.0 - 3.0 Inclu gabriella: PROPHYLAXIS for venous thrombosis, systemic embolization; TREATMENT for cristina ous thrombosis and/or pulmonary embolus.HIGH RISK: Target INR is 2.5-3.5 for pat ients with mechanical heart valves.BASIC METABOLIC [id number] 03:25:00* Test Item Value Reference Range Comments SODIUM (BEAKER) (test umno=160) 138 meq/L 136-145 POTASSIUM (BEAKER) (test jxux=019) 3.5 meq/L 3.5-5.1 CHLORIDE (BEAKER) (test hpho=549) 103 meq/L 98-107 CO2 (BEAKER) (test yrjs=200) 28 meq/L 22-29 BLOOD UREA NITROGEN (BEAKER) (test ckcd=054) 18 mg/dL 7-21 CREATININE (BEAKER) (test giqu=273) 0.64 mg/dL 0.57-1.25 GLUCOSE RANDOM (BEAKER) (test ltpg=023) 122 mg/dL 70-105 CALCIUM (BEAKER) (test xmsk=165) 7.5 mg/dL 8.4-10.2 EGFR (BEAKER) (test dezg=7781) 124 mL/min/1.73 sq m ESTIMATED GFR IS NOT ACCURATE CREATININE CLEARANCE IN PREDICTING GLOMERULAR FILTRATION RATE. ESTIMATED GFR IS NOT APPLICABLE FOR DIALYSIS PATIENTS. [id number] 03:21:00* Test Item Value Reference Range Comments MAGNESIUM (BEAKER) (test zsre=043) 2.2 mg/dL 1.6-2.6 CBC (HEMOGRAM ONLY)2016-05-17 03:11:00* Test Item Value Reference Range Comments WHITE BLOOD CELL COUNT (BEAKER) (test ulst=188) 6.9 K/ L 4.0-10.0 RED BLOOD CELL COUNT (BEAKER) (test jpsa=267) 3.27 M/ L 4.20-5.80 HEMOGLOBIN (BEAKER) (test xcwn=281) 10.6 GM/DL 13.0-16.8 HEMATOCRIT (BEAKER) (test rryh=575) 30.9 % 40.0-50.0 MEAN CORPUSCULAR VOLUME (BEAKER) (test txyx=828) 94.6 fL 82.0-98.0 MEAN CORPUSCULAR HEMOGLOBIN (BEAKER) (test zyod=409) 32.3 pg 27.0-33.0 MEAN CORPUSCULAR HEMOGLOBIN CONC (BEAKER) (test xkql=149) 34.2 GM/DL 32.0-36.0 RED CELL DISTRIBUTION WIDTH (BEAKER) (test unlb=645) 15.3 % 10.3-14.2 PLATELET COUNT (BEAKER) (test tgow=098) 252 K/CU MM 150-430 MEAN PLATELET VOLUME (BEAKER) (test awke=848) 7.2 fL 6.5-10.5 NUCLEATED RED BLOOD CELLS (BEAKER) (test enst=207) 0 /100 WBC 0-0 0.00CBC W/PLT COUNT & AUTO [id number] 05:16:00* Test Item Value Reference Range Comments WHITE BLOOD CELL COUNT (BEAKER) (test huvh=043) 8.6 K/ L 4.0-10.0 RED BLOOD CELL COUNT (BEAKER) (test nldp=596) 3.53 M/ L 4.20-5.80 HEMOGLOBIN (BEAKER) (test fenp=446) 11.0 GM/DL 13.0-16.8 HEMATOCRIT (BEAKER) (test gdgd=422) 33.3 % 40.0-50.0 MEAN CORPUSCULAR VOLUME (BEAKER) (test hhli=567) 94.4 fL 82.0-98.0 MEAN CORPUSCULAR HEMOGLOBIN (BEAKER) (test bsqv=452) 31.3 pg 27.0-33.0 MEAN CORPUSCULAR HEMOGLOBIN CONC (BEAKER) (test lxtu=807) 33.1 GM/DL 32.0-36.0 RED CELL DISTRIBUTION WIDTH (BEAKER) (test mbpz=137) 15.2 % 10.3-14.2 PLATELET COUNT (BEAKER) (test cuex=465) 274 K/CU MM 150-430 MEAN PLATELET VOLUME (BEAKER) (test vnnv=151) 7.2 fL 6.5-10.5 NUCLEATED RED BLOOD CELLS (BEAKER) (test jexz=685) 0 /100 WBC 0-0 NEUTROPHILS RELATIVE PERCENT (BEAKER) (test uzan=867) 75 % LYMPHOCYTES RELATIVE PERCENT (BEAKER) (test varq=364) 19 % MONOCYTES RELATIVE PERCENT (BEAKER) (test dwub=286) 5 % EOSINOPHILS RELATIVE PERCENT (BEAKER) (test wbit=913) 0 % BASOPHILS RELATIVE PERCENT (BEAKER) (test xuub=496) 1 % NEUTROPHILS ABSOLUTE COUNT (BEAKER) (test koea=681) 6.41 K/ L 1.80-8.00 LYMPHOCYTES ABSOLUTE COUNT (BEAKER) (test mhxa=023) 1.65 K/ L 1.48-4.50 MONOCYTES ABSOLUTE COUNT (BEAKER) (test woyb=578) 0.43 K/ L 0.00-1.30 EOSINOPHILS ABSOLUTE COUNT (BEAKER) (test weng=464) 0.03 K/ L 0.00-0.50 BASOPHILS ABSOLUTE COUNT (BEAKER) (test dklu=568) 0.05 K/ L 0.00-0.20 0.00BASIC METABOLIC [id number] 05:12:00* Test Item Value Reference Range Comments SODIUM (BEAKER) (test acvw=905) 137 meq/L 136-145 POTASSIUM (BEAKER) (test shhs=620) 3.3 meq/L 3.5-5.1 CHLORIDE (BEAKER) (test kamn=341) 106 meq/L 98-107 CO2 (BEAKER) (test ahbn=692) 24 meq/L 22-29 BLOOD UREA NITROGEN (BEAKER) (test hzvw=728) 15 mg/dL 7-21 CREATININE (BEAKER) (test styp=468) 0.57 mg/dL 0.57-1.25 GLUCOSE RANDOM (BEAKER) (test oozf=017) 123 mg/dL 70-105 CALCIUM (BEAKER) (test tnrb=778) 7.0 mg/dL 8.4-10.2 EGFR (BEAKER) (test zpsi=3795) 142 mL/min/1.73 sq m ESTIMATED GFR IS NOT ACCURATE CREATININE CLEARANCE IN PREDICTING GLOMERULAR FILTRATION RATE. ESTIMATED GFR IS NOT APPLICABLE FOR DIALYSIS PATIENTS. [id number] 05:10:00* Test Item Value Reference Range Comments MAGNESIUM (BEAKER) (test lbcg=014) 1.8 mg/dL 1.6-2.6 POCT-GLUCOSE [id number] 14:55:00* Test Item Value Reference Range Comments POC-GLUCOSE METER (BEAKER) (test mcgc=5715) 117 mg/dL 70-110 TESTED AT [facility] [address] [address] URINE [id number] 12:58:00* Test Item Value Reference Range Comments CULTURE (BEAKER) (test bjmx=1595) See comment <10,000 col/mL Gram Negative Rods>100,000 col/mL skin floraBASIC METABOLIC PANEL 2016-05-15 04:27:00* Test Item Value Reference Range Comments SODIUM (BEAKER) (test pzxe=990) 136 meq/L 136-145 POTASSIUM (BEAKER) (test ysbp=162) 3.8 meq/L 3.5-5.1 CHLORIDE (BEAKER) (test nqem=824) 100 meq/L 98-107 CO2 (BEAKER) (test xhcl=124) 26 meq/L 22-29 BLOOD UREA NITROGEN (BEAKER) (test tize=831) 11 mg/dL 7-21 CREATININE (BEAKER) (test lfim=124) 0.57 mg/dL 0.57-1.25 GLUCOSE RANDOM (BEAKER) (test uhqd=422) 106 mg/dL 70-105 CALCIUM (BEAKER) (test uyos=605) 7.9 mg/dL 8.4-10.2 EGFR (BEAKER) (test xvcb=5283) 142 mL/min/1.73 sq m ESTIMATED GFR IS NOT ACCURATE CREATININE CLEARANCE IN PREDICTING GLOMERULAR FILTRATION RATE. ESTIMATED GFR IS NOT APPLICABLE FOR DIALYSIS PATIENTS. [id number] 04:23:00* Test Item Value Reference Range Comments MAGNESIUM (BEAKER) (test xgiy=013) 1.8 mg/dL 1.6-2.6 CBC W/PLT COUNT & AUTO [id number] 04:11:00* Test Item Value Reference Range Comments WHITE BLOOD CELL COUNT (BEAKER) (test tycd=829) 5.9 K/ L 4.0-10.0 RED BLOOD CELL COUNT (BEAKER) (test scwg=613) 4.02 M/ L 4.20-5.80 HEMOGLOBIN (BEAKER) (test paig=255) 12.1 GM/DL 13.0-16.8 HEMATOCRIT (BEAKER) (test smpr=253) 38.0 % 40.0-50.0 MEAN CORPUSCULAR VOLUME (BEAKER) (test isxw=622) 94.4 fL 82.0-98.0 MEAN CORPUSCULAR HEMOGLOBIN (BEAKER) (test dgto=271) 30.0 pg 27.0-33.0 MEAN CORPUSCULAR HEMOGLOBIN CONC (BEAKER) (test ejdm=246) 31.8 GM/DL 32.0-36.0 RED CELL DISTRIBUTION WIDTH (BEAKER) (test fmwr=549) 15.1 % 10.3-14.2 PLATELET COUNT (BEAKER) (test ypzz=624) 290 K/CU MM 150-430 MEAN PLATELET VOLUME (BEAKER) (test mfgj=961) 7.1 fL 6.5-10.5 NUCLEATED RED BLOOD CELLS (BEAKER) (test swca=265) 0 /100 WBC 0-0 NEUTROPHILS RELATIVE PERCENT (BEAKER) (test nmwx=480) 71 % LYMPHOCYTES RELATIVE PERCENT (BEAKER) (test fzar=940) 27 % MONOCYTES RELATIVE PERCENT (BEAKER) (test cnbk=442) 1 % EOSINOPHILS RELATIVE PERCENT (BEAKER) (test hxxq=650) 0 % BASOPHILS RELATIVE PERCENT (BEAKER) (test krlb=855) 0 % NEUTROPHILS ABSOLUTE COUNT (BEAKER) (test xrqy=960) 4.20 K/ L 1.80-8.00 LYMPHOCYTES ABSOLUTE COUNT (BEAKER) (test cwim=453) 1.59 K/ L 1.48-4.50 MONOCYTES ABSOLUTE COUNT (BEAKER) (test eysx=020) 0.05 K/ L 0.00-1.30 EOSINOPHILS ABSOLUTE COUNT (BEAKER) (test ikel=641) 0.01 K/ L 0.00-0.50 BASOPHILS ABSOLUTE COUNT (BEAKER) (test tzqw=324) 0.03 K/ L 0.00-0.20 0.00CREATINE KINASE (CK), TOTAL AND [id number] 15:55:00* Test Item Value Reference Range Comments CREATINE KINASE TOTAL (BEAKER) (test kvuj=535) 19 U/L 29-200 CREATINE KINASE-MB (BEAKER) (test xeur=734) 0.9 ng/mL 0.0-6.6 CREATINE KINASE-MB INDEX (BEAKER) (test bozq=140) 4.7 % Effective 02/15/2014: CK-MB Reference Range ChangeNew: 0.0-6.6 Previous: 0.0- 4.9CK-MB Reference Range:<6.7 Normal6.7-10.0 Borderline>10.0 Abnormal TROPONIN [id number] 15:49:00* Test Item Value Reference Range Comments TROPONIN I (BEAKER) (test kmix=668) < ng/mL 0.00-0.03 Effective 02/15/2014: Reference Range ChangeNew: 0.00-0.03 Previous 0.00-0.15T roponin I (TnI) levels must be interpreted in the context of the presenting symp toms and the clinical findings. Elevated TnI levels indicate myocardial damage, but are not specific for ischemic heart disease. Elevated TnI levels are seen in patients with other cardiac conditions (including myocarditis and congestive he art failure), and slight TnI elevations occur in patients with other conditions, including sepsis, renal failure, acidosis, acute neurological disease, and pers istent tachyarrhythmia.BLOOD GAS, [id number] 15:25:00* Test Item Value Reference Range Comments PH ARTERIAL (BEAKER) (test lmyl=094) 7.43 7.35-7.45 PCO2 ARTERIAL (BEAKER) (test eybc=353) 58 mmHg 35-45 PO2 ARTERIAL (BEAKER) (test fkqn=965) 99 mmHg 80-90 O2 SATURATION ARTERIAL (BEAKER) (test pjhl=445) 97.7 % 96.0-97.0 HCO3 ARTERIAL (BEAKER) (test igeh=993) 38 mmol/L 21-29 BASE EXCESS ARTERIAL (BEAKER) (test uolk=326) 11.5 mmol/L -2.0-3.0 PATIENT TEMPERATURE (BEAKER) (test glcj=4838) 36.3 C FIO2 (BEAKER) (test wrvt=3692) 45.0 %
== END 2018-01-07 18:12 | disposition home or self-care (01) | DRG 189 ==
LOC: ER 12:49 → ERHOLD 17:23 → IMCU 01-06 09:41
PROVIDERS: ADMIT Internal Medicine; ATTEND Internal Medicine
DX: J96.21 Acute and chronic respiratory failure with hypoxia (principal); I50.32 Chronic diastolic (congestive) heart failure; E87.4 Mixed disorder of acid-base balance; I25.10 Atherosclerotic heart disease of native coronary artery without angina pectoris; I11.0 Hypertensive heart disease with heart failure; J96.22 Acute and chronic respiratory failure with hypercapnia; R26.0 Ataxic gait; Z95.5 Presence of coronary angioplasty implant and graft; G70.89 Other specified myoneural disorders; G47.33 Obstructive sleep apnea (adult) (pediatric); J44.9 Chronic obstructive pulmonary disease, unspecified; Z85.72 Personal history of non-Hodgkin lymphomas; Z91.81 History of falling; I48.91 Unspecified atrial fibrillation; M71.9 Bursopathy, unspecified; F15.10 Other stimulant abuse, uncomplicated; F13.10 Sedative, hypnotic or anxiolytic abuse, uncomplicated; F11.10 Opioid abuse, uncomplicated; H54.61 Unqualified visual loss, right eye, normal vision left eye
CPT/HCPCS: 36415; 36600; 70450; 71045; 71046; 71260; 80048; 80053; 80307; 80320; 81001; 82550; 82553; 82805; 83735; 83880; 84443; 84484; 85025; 93005; 93306; 94640; 94660; 99285; J1650; J1940; J2310; J7040; Q9967